=== PATIENT | female | born 1950 | race Caucasian/White ===

== ENCOUNTER → 2022-01-01 | Outpatient (CLI) | payer MEDICARE, OTHER ==
[2022-01-01 10:03] LABS: BASO # 0.04 K/mm3 (0.02-0.10); EOS # 0.18 K/mm3 (0.04-0.40); HEMATOCRIT 43.8 % (37.0-47.0); HEMOGLOBIN 14.5 g/dL (12.5-16.0); LYMPH# 2.48 K/mm3 (1.50-4.00); MEAN CELL VOLUME 95 fl (78-100); MEAN CORPUSCULAR HEMOGLOBIN 32 pg (27-31); MEAN CORPUSCULAR HGB CONC 33 g/dL (33-37); MEAN PLATELET VOLUME 8.7 fl (7.4-10.4); MONO # 0.37 K/mm3 (0.20-0.80); NEU # 2.86 K/mm3 (1.40-6.50); PLATELET COUNT 290 K/mm3 (130-400); RED BLOOD COUNT 4.59 M/mm3 (4.10-5.30); RED CELL DISTRIBUTION WIDTH 11.8 % (11.5-14.5); WHITE BLOOD COUNT 5.9 K/mm3 (4.8-10.8)
[2022-01-01 10:11] LABS: POTASSIUM 4.9 mmol/L (3.5-5.1)
[2022-01-01 10:12] LABS: ALBUMIN 4.6 g/dL (3.4-4.8)
[2022-01-01 10:13] LABS: CALCIUM 9.8 mg/dL (8.3-10.5)
[2022-01-01 10:14] LABS: TOTAL PROTEIN 7.9 g/dL (6.2-8.1)
[2022-01-01 10:16] LABS: TOTAL BILIRUBIN 0.3 mg/dL (0.2-1.2)
== END ==
LOC: LAB 09:31
PROVIDERS: Physician Assistant
DX: Z13.220 Encounter for screening for lipoid disorders (principal); Z13.29 Encounter for screening for other suspected endocrine disorder; E11.9 Type 2 diabetes mellitus without complications; Z76.89 Persons encountering health services in other specified circumstances; J45.909 Unspecified asthma, uncomplicated; M19.90 Unspecified osteoarthritis, unspecified site; F41.9 Anxiety disorder, unspecified; G47.00 Insomnia, unspecified; N32.9 Bladder disorder, unspecified; K90.9 Intestinal malabsorption, unspecified

== ENCOUNTER → 2022-05-20 | Outpatient (CLI) | payer OTHER | LOC: LAB 09:41 | DX: Z00.00 Encounter for general adult medical examination without abnormal findings (principal); Z12.11 Encounter for screening for malignant neoplasm of colon; E11.9 Type 2 diabetes mellitus without complications; I10 Essential (primary) hypertension; E78.5 Hyperlipidemia, unspecified; N32.9 Bladder disorder, unspecified; Z78.9 Other specified health status ==

== ENCOUNTER 2022-12-24 08:50 | Outpatient (RCR) | payer MEDICARE, OTHER ==
[~2022-12-24 08:50] MED LIST: CYCLOBENZ5 MG PO; DESYREL50 MG PO; EZETIMIBE10 M1 PO; GOOD NEIGHBOR100 M2 PO; MELOXICAM7.5 MG PO; NORCO 325 MG-51 TA1 PO; OZEMPIC1 MG/0.71 SQ
== END 2022-12-31 | disposition home or self-care (01) ==
LOC: PT
DX: M54.32 Sciatica, left side (principal)

== ENCOUNTER → 2023-01-07 | Outpatient (CLI) | payer MEDICARE, OTHER | LOC: RAD 08:27 | DX: M47.816 Spondylosis without myelopathy or radiculopathy, lumbar region (principal); M16.0 Bilateral primary osteoarthritis of hip; M43.16 Spondylolisthesis, lumbar region; M53.3 Sacrococcygeal disorders, not elsewhere classified ==

== ENCOUNTER → 2023-05-18 | Outpatient (CLI) | payer MEDICARE, OTHER | LOC: RAD 08:34 | DX: M51.36 Other intervertebral disc degeneration, lumbar region (principal); M51.37 Other intervertebral disc degeneration, lumbosacral region; M47.816 Spondylosis without myelopathy or radiculopathy, lumbar region; M47.817 Spondylosis without myelopathy or radiculopathy, lumbosacral region; M43.16 Spondylolisthesis, lumbar region ==

== ENCOUNTER → 2023-10-01 | Outpatient (CLI) | payer MEDICARE, OTHER ==
[2023-11-20 10:43] LABS: ALBUMIN 4.5 g/dL (3.4-4.8); CALCIUM 9.5 mg/dL (8.3-10.5); TOTAL BILIRUBIN 0.5 mg/dL (0.2-1.2); TOTAL PROTEIN 7.4 g/dL (6.2-8.1)
== END ==
LOC: LAB 09:03
PROVIDERS: Physician Assistant
DX: E11.9 Type 2 diabetes mellitus without complications (principal); I10 Essential (primary) hypertension; E78.5 Hyperlipidemia, unspecified

== ENCOUNTER 2023-10-21 08:00 | Outpatient (RCR) | payer MEDICARE, OTHER | END 2023-10-31 | LOC: PT | DX: M76.72 Peroneal tendinitis, left leg (principal); Q66.222 Congenital metatarsus adductus, left foot; M79.672 Pain in left foot; M54.16 Radiculopathy, lumbar region; R26.9 Unspecified abnormalities of gait and mobility; M20.5X2 Other deformities of toe(s) (acquired), left foot ==

== ENCOUNTER 2023-11-01 08:00 | Outpatient (RCR) | payer MEDICARE, OTHER | END 2023-12-01 | LOC: PT | DX: M76.72 Peroneal tendinitis, left leg (principal) ==

== ENCOUNTER → 2023-11-17 | Outpatient (CLI) | payer MEDICARE, OTHER ==
[2023-11-17 12:38] LABS: BASO # 0.05 K/mm3 (0.02-0.10); EOS # 0.16 K/mm3 (0.04-0.40); EOS % 2.6 % (1.0-5.0); HEMOGLOBIN 13.6 g/dL (12.5-16.0); LYMPH# 2.75 K/mm3 (1.50-4.00); MEAN CELL VOLUME 95 fl (78-100); MEAN CORPUSCULAR HEMOGLOBIN 32 pg (27-31); MEAN CORPUSCULAR HGB CONC 33 g/dL (33-37); MEAN PLATELET VOLUME 8.6 fl (7.4-10.4); MONO # 0.45 K/mm3 (0.20-0.80); NEU # 2.76 K/mm3 (1.40-6.50); PLATELET COUNT 277 K/mm3 (130-400); RED BLOOD COUNT 4.32 M/mm3 (4.10-5.30); RED CELL DISTRIBUTION WIDTH 12.1 % (11.5-14.5); WHITE BLOOD COUNT 6.2 K/mm3 (4.8-10.8)
[2023-11-17 12:51] LABS: CALCIUM 10.2 mg/dL (8.3-10.5)
[2023-11-17 12:59] LABS: D-DIMER 0.24 mg/L FEU (0.15-0.50)
== END ==
LOC: LAB 12:23
PROVIDERS: Nurse Practitioner Family
DX: M79.605 Pain in left leg (principal)

== ENCOUNTER → 2024-01-01 | Outpatient (CLI) | payer MEDICARE, OTHER | LOC: RAD 10:28 | DX: J20.9 Acute bronchitis, unspecified (principal) ==

== ENCOUNTER → 2024-01-27 | Outpatient (CLI) | payer MEDICARE, OTHER | LOC: LAB 09:20 | DX: E11.9 Type 2 diabetes mellitus without complications (principal); R31.9 Hematuria, unspecified ==

== ENCOUNTER → 2024-02-22 | Outpatient (CLI) | payer MEDICARE, OTHER ==
[2024-02-22 12:49] LABS: URINE APPEARANCE CLEAR (CLEAR); URINE COLOR YELLOW (YELLOW)
[2024-02-22 12:50] LABS: URINE BILIRUBIN NEGATIVE (NEGATIVE); URINE BLOOD TRACE (NEGATIVE); URINE GLUCOSE NEGATIVE (NEGATIVE); URINE KETONE NEGATIVE (NEGATIVE); URINE LEUKOCYTE ESTERASE 1+ (NEGATIVE); URINE NITRATE NEGATIVE (NEGATIVE); URINE PROTEIN(semi-quant) NEGATIVE (NEGATIVE); URINE WBC 16-30 /hpf (0-3)
== END ==
LOC: LAB 12:22
PROVIDERS: Physician Assistant
DX: R31.9 Hematuria, unspecified (principal)

== ENCOUNTER → 2024-06-01 | Outpatient (CLI) | payer MEDICARE, OTHER | LOC: LAB 12:09 | DX: Z11.59 Encounter for screening for other viral diseases (principal) ==

== ENCOUNTER → 2024-07-25 | Outpatient (CLI) | payer MEDICARE, OTHER | LOC: AMSURD 09:51 | DX: I48.0 Paroxysmal atrial fibrillation (principal) ==